=== PATIENT | male | born 1965 | race Caucasian/White ===

== ENCOUNTER 2018-06-03 19:24 | Inpatient (IN) | payer BC, MEDICAID ==
[~2018-06-03] VITALS: Ht 182.9 cm; Wt 49.2 kg
[~2018-06-03 19:24] MED LIST: ALPR2TAB2 PO; ATOR20TA PO; CLOP75TA15 PO; GABA-534 PO; LISI-603 PO; OXYC30TA2 PO
--- NOTE | 2018-06-03 21:10 | NUR ---
Dr. Navarrete at bedside for MSE.
[2018-06-03] MEDS ORDERED: OXYCODONE/APAP 5-325 MG TABLET PO ONE (21:15)
[2018-06-03] MEDS ORDERED: VANCOMYCIN IV 1,000 MG in IV DEXTROSE 5% 250 ML IV ONE (21:15)
--- NOTE | 2018-06-03 21:22 | NUR ---
Xray at bedside.
[2018-06-03] MEDS ORDERED: OXYCODONE/APAP 5-325 MG TABLET ONE (21:24)
[2018-06-03] MEDS ORDERED: VANCOMYCIN IV 200 ML ONE (21:24)
[2018-06-03 22:00] LABS: BASOPHILS % (AUTO) 0.3 % (0.0-2.0); EOSINOPHILS # (AUTO) 0.1 K/uL (0.0-0.7); EOSINOPHILS % (AUTO) 0.6 % (0.0-7.0); HEMATOCRIT 28.2 % (36.7-47.1); HEMOGLOBIN 9.3 g/dL (12.5-16.3); LYMPHOCYTES # (AUTO) 1.2 K/uL (20.0-40.0); LYMPHOCYTES % (AUTO) 7.9 % (20.5-51.5); MEAN CORPUSCULAR HGB CONC 33 g/dL (32.5-36.3); MEAN CORPUSCULAR VOLUME 72.5 fL (73.0-96.2); MONOCYTES # (AUTO) 0.9 K/uL (2.0-10.0); MONOCYTES % (AUTO) 5.8 % (0.0-11.0); NEUTROPHILS # (AUTO) 13.3 K/uL (1.8-8.9); NEUTROPHILS % (AUTO) 85.4 % (38.5-71.5); PLATELET COUNT (AUTO) 352 K/uL (152-348); RED BLOOD CELL COUNT(AUTO) 3.89 MIL/uL (4.06-5.63); WHITE BLOOD COUNT (AUTO) 15.6 K/uL (3.6-10.2)
[2018-06-03 22:14] LABS: ALANINE AMINOTRANSFERASE 11 U/L (16-63); ALKALINE PHOSPHATASE 80 U/L (50-136); ASPARTATE AMINOTRANSFERASE 9 U/L (15-37); BILIRUBIN,DIRECT 0.1 mg/dL (0.0-0.2); BILIRUBIN,TOTAL 0.3 mg/dL (0.2-1.0); CARBON DIOXIDE 30 mmol/L (21-32); CHLORIDE 98 mmol/L (98-107); CREATININE 0.5 mg/dL (0.6-1.3); GLUCOSE 105 mg/dL (74-106); POTASSIUM 4.3 mmol/L (3.5-5.1); TOTAL PROTEIN, SERUM 7.1 g/dL (6.4-8.2); UREA NITROGEN, BLOOD 14 mg/dL (7-18)
--- NOTE | 2018-06-03 22:36 | NUR ---
Melyssa Mon FIBROUS PLASTERER at bedside.
[2018-06-03] MEDS ORDERED: DICYCLOMINE HCL 10 MG/5 ML UDC LIQ PO ONE (22:45)
--- NOTE | 2018-06-03 23:00 | NUR ---
Report given to Devi SANZ Medsurg.
[2018-06-03] MEDS ORDERED: IV NS 1000 ML 1,000 ML IV PRN (23:08)
[2018-06-03] MEDS ORDERED: ACETAMINOPHEN 325 MG TABLET PO PRN (23:15)
[2018-06-03] MEDS ORDERED: ONDANSETRON 4 MG/2 ML VIAL IV PRN (23:15)
[2018-06-03] MEDS ORDERED: MAGNESIUM HYDROXIDE 30 ML LIQUID UDC PO PRN (23:15)
[2018-06-03] MEDS ORDERED: Z GUARD REMEDY PASTE 57 GM TUBE TOP PRN (23:15)
[2018-06-03] MEDS ORDERED: HYDROCODONE/APAP 5-325MG TABLET PO PRN (23:15)
[2018-06-03] MEDS ORDERED: HYDROCODONE/APAP 10-325 MG TABLET PO PRN (23:15)
--- NOTE | 2018-06-03 23:30 | NUR ---
Admitted a 52 years old male with diagnosis of Left hip abscess. Patient AAOx4. In no acute distress. Complain of severe left hip pain. Will give pain medication per admission order. Denies any SOB on RA. Accompanied by his son Jarvis. IV site on left shoulder intact and patent. Routine admission care done. Plan of care initiated. Safety measure initiated and call trinh within reach.
[2018-06-03 23:31] VITALS: BP 111/71
[2018-06-04] MEDS: MORPHINE SULFATE 2 MG/1 ML DISP.SYRIN IV PRN ×4 (00:03→16:04)
[2018-06-04 05:24] VITALS: BP 106/69
--- NOTE | 2018-06-04 06:17 | NUR ---
Patient AAOx4. In no acute distress.Morphine prn per order given for complain of left hip pain. Denies any SOB. IV site on left shoulder remains intact and patent. needs attended to and met. Safety measure maintained and call trinh within reach.
[2018-06-04 06:44] LABS: BASOPHILS % (AUTO) 0.2 % (0.0-2.0); EOSINOPHILS # (AUTO) 0.1 K/uL (0.0-0.7); EOSINOPHILS % (AUTO) 0.9 % (0.0-7.0); HEMATOCRIT 27.6 % (36.7-47.1); HEMOGLOBIN 8.9 g/dL (12.5-16.3); LYMPHOCYTES # (AUTO) 1.3 K/uL (20.0-40.0); MEAN CORPUSCULAR HEMOGLOBIN 23.3 uug (23.8-33.4); MEAN CORPUSCULAR HGB CONC 32 g/dL (32.5-36.3); MEAN CORPUSCULAR VOLUME 71.8 fL (73.0-96.2); MONOCYTES # (AUTO) 0.9 K/uL (2.0-10.0); MONOCYTES % (AUTO) 6.5 % (0.0-11.0); NEUTROPHILS # (AUTO) 11.6 K/uL (1.8-8.9); NEUTROPHILS % (AUTO) 83.4 % (38.5-71.5); PLATELET COUNT (AUTO) 352 K/uL (152-348); RED BLOOD CELL COUNT(AUTO) 3.84 MIL/uL (4.06-5.63); WHITE BLOOD COUNT (AUTO) 13.9 K/uL (3.6-10.2)
--- NOTE | 2018-06-04 06:56 | NUR ---
TEXTED DR. DIOR FOR MRI PELVIS W/WO APPROVAL.
[2018-06-04] MEDS ORDERED: PANTOPRAZOLE SODIUM 40 MG TABLET.DR PO SCH (07:00)
[2018-06-04 07:01] LABS: CARBON DIOXIDE 34 mmol/L (21-32); CHLORIDE 102 mmol/L (98-107); CHOLESTEROL 133 mg/dL (<200); CREATININE 0.5 mg/dL (0.6-1.3); GLUCOSE 108 mg/dL (74-106); HDL CHOLESTEROL 38 mg/dL (40-60); MAGNESIUM 1.9 mg/dL (1.8-2.4); PHOSPHOROUS 2.7 mg/dL (2.5-4.9); POTASSIUM 4.6 mmol/L (3.5-5.1); TRIGLYCERIDES 80 MG/DL (30-150); UREA NITROGEN, BLOOD 13 mg/dL (7-18)
[2018-06-04 07:05] LABS: THYROID STIMULATING HORMONE 3.469 mIU/mL (0.358-3.740)
--- NOTE | 2018-06-04 07:26 | NUR ---
Report was received by the night nurse Devi Peter. IV is infusing at 75 cc per hour. patient is sleeping, appears in no discomfort. Dressing left hip, is draining very foul smelling odor.
[2018-06-04 08:14] LABS: LYMPHOCYTES % (MANUAL) 9 % (20-40); MONOCYTES % (MANUAL) 7 % (2-10); NEUTROPHILS % (MANUAL) 84 % (42-75)
[2018-06-04] MEDS ORDERED: NICOTINE 14 MG/24HR PATCH TD SCH (09:00)
[2018-06-04] MEDS ORDERED: VANCOMYCIN IV 750 MG in IV DEXTROSE 5% 250 ML IV SCH (09:00)
[2018-06-04 10:03] VITALS: BP 103/64
[2018-06-04] MEDS: VANCOMYCIN IV 750 MG in IV DEXTROSE 5% 250 ML IV SCH ×2 (10:11→18:00)
--- NOTE | 2018-06-04 12:45 | NUR ---
Clinical Pharmacy Note: Vancomycin Dosing per Pharmacy Subjective: Vancomycin IV to start on this 52 yo male patient for Documented Infection (r/o osteomyelitis) Objective: BUN 13/Scr 0.5 WBC 1.9 Temperature 97.9 Assessment/Plan: Patient received vanco 1gm IVPB x1 dose on 06/03 at 2200 in ED. Will start vancomycin 750mg IVPB Q9hr for a predicted vancomycin steady state trough level of 16 mcg/ml. 1st dose due today 0900. Will draw a vancomycin trough level prior to the 4th dose of vancomycin (not ordered yet). Will monitor renal function and adjust vancomycin dose, if needed, should renal function change significantly. Will follow daily.
[2018-06-04 15:45] VITALS: BP 108/62
--- NOTE | 2018-06-04 17:30 | NUR ---
1730 Patient not found in room, patient had eloped. CATTLE DRIVER asked if patient left the floor, patient took his wheelchair and put on his clothes, pulled out his IV, patient was medicated with [place] 10/325 at 1635. stated IV morphine not relieving his pain. Melyssa HINSON stated earlier, she told the patient he was getting only low dose Morphine. Patient pulled out the whole IV with the catheter tip intact. Patient left his tennis shoes on the floor. 1735: Nursing correctional food service supervisor Mai was notified patient left the floor 1745: Security stated patient was in a hurry and left the unit on his wheelchair.
== END 2018-06-04 17:30 | disposition left against medical advice (07) | DRG 383 ==
LOC: ER 19:24 → MED 23:03
PROVIDERS: ADMIT Registered Nurse; ATTEND Registered Nurse
DX: L02.416 Cutaneous abscess of left lower limb (principal); E43 Unspecified severe protein-calorie malnutrition; E87.2 Acidosis; M86.8X8 Other osteomyelitis, other site; G62.9 Polyneuropathy, unspecified; I73.9 Peripheral vascular disease, unspecified; F11.21 Opioid dependence, in remission; Z91.19 Patient's noncompliance with other medical treatment and regimen; I10 Essential (primary) hypertension; F17.210 Nicotine dependence, cigarettes, uncomplicated; Z68.1 Body mass index [BMI] 19.9 or less, adult; Z59.0 Homelessness; Z95.5 Presence of coronary angioplasty implant and graft; E78.5 Hyperlipidemia, unspecified; D63.8 Anemia in other chronic diseases classified elsewhere; Z87.81 Personal history of (healed) traumatic fracture; M85.80 Other specified disorders of bone density and structure, unspecified site
CPT/HCPCS: 36415; 72170; 73551; 83605; 83735; 84100; 84443; 85025; 85730; 87040; 93005; A4217; A4663; G0378; J2270; J3370; J7030; J7060